=== PATIENT | male | born 1985 | race Caucasian/White ===

== ENCOUNTER 2018-01-16 11:23 | Emergency (ER) | payer SELFPAY ==
[~2018-01-16] VITALS: Ht 177.8 cm; Wt 80.0 kg
[2018-01-16] MEDS ORDERED: KETOROLAC 60MG/2ML VIAL IM ONE (12:00)
[2018-01-16 12:26] LABS: CLARITY URINE CLEAR (CLEAR); COLOR URINE YELLOW (YELLOW); KETONES URINE NEGATIVE (NEGATIVE); LEUKOCYTE ESTERASE URINE NEGATIVE (NEGATIVE); NITRITE URINE NEGATIVE (NEGATIVE); OCCULT BLOOD URINE 2+ (NEGATIVE); PROTEIN URINE NEGATIVE (NEGATIVE); SPECIFIC GRAVITY URINE 1.018 (1.005-1.030); UROBILINOGEN URINE 0.2 E.U./dL (0.2-1.0)
[2018-01-16 14:38] VITALS: BP 123/70
== END 2018-01-16 14:40 | disposition home or self-care (01) ==
LOC: ER 11:23
DX: N20.0 Calculus of kidney (principal)
CPT/HCPCS: 74176; 81003; 96372; 99285; J1885